=== PATIENT | male | born 1995 | race Caucasian/White ===

== ENCOUNTER 2020-07-08 09:04 | Emergency (ER) | payer BC, SELFPAY ==
[2020-07-08 09:21] VITALS: BP 149/96; PULSE 86; RESP 18; TEMP 36.9; O2SAT 98; BMI 64.7
--- NOTE | 2020-07-08 09:35 | HMH.EDUTC ---
[facility] [place] Disposition Clinical Impression: Right otitis media Qualifiers: Otitis media type: suppurative Chronicity: acute Recurrence: non-recurrent Spontaneous tympanic membrane rupture: without spontaneous rupture Qualified Code(s): H66.001 - Acute suppurative otitis media without spontaneous rupture of ear drum, right ear Sinusitis Qualifiers: Sinusitis location: maxillary Chronicity: acute Recurrence: non-recurrent Qualified Code(s): J01.00 - Acute maxillary sinusitis, unspecified Disposition: Home, Self-Care Condition on Discharge: Good Instructions: DI for Sinusitis Prescriptions: Amoxicillin [Amoxicillin 875MG Tab] 875 mg PO Q12H #20 tab Transmission Status: Pending to [id number] predniSONE [Prednisone 20mg Tab] 20 mg PO BID 5 Days #10 tab Transmission Status: Pending to [id number] Referrals: PCP,No [Primary Care Provider] - Forms: Work/School Release Time of Disposition: 09:42 Medical Decision Making - Mukund Inquiry Pt receiving controlled substance: No Vital Signs: 07/08/20 09:21 Temperature 98.4 F Temperature Source Oral Pulse Rate [Right Brachial] 86 Respiratory Rate 18 Blood Pressure [Right Arm] 149/96 H Blood Pressure Mean [Right Arm] 113 Blood Pressure Source [Right Arm] Automatic Cuff Blood Pressure Position [Right Arm] Sitting 02 Sat by Pulse Oximetry 98 [facility] [place] HPI - General Stated complaint: flu test Time Seen by Provider: 07/08/20 09:35 Mode of Arrival: Ambulatory Source of Information: Patient Limitations: No Limitations Description of Symptoms (Recalled from Triage Doc. by RN): Flu test HEENT Symptoms (Recalled from RN notes): No Resp Symptoms (Recalled from RN notes): Yes Skin Symptoms (Recalled from RN notes): No MS Symptoms (Recalled from RN notes): No Functional Status (Recalled from RN notes): wnl - History of Present Illness Provider Complaint: Patient has had right ear pain, sinus pain, congestion, sore throat, productive cough X 7-8 days. Works at [employer] and has been tested for COVID19 twice and has been negative. Onset (ago): day(s) (8) Relieving factors: none Exacerbating factors: none Associated symptoms: cough Treatments prior to arrival: none - Related Data Previous Rx's Medication Instructions Recorded Amoxicillin [Amoxicillin 875MG 875 mg PO Q12H #20 tab 07/08/20 Tab] predniSONE [Prednisone 20mg 20 mg PO BID 5 Days #10 tab 07/08/20 Tab] Allergies Allergy/AdvReac Type Severity Reaction Status Date / Time No Known Allergies Allergy Verified 07/08/20 09:32 - Worker's Comp Is this a Worker's Comp case?: No H History - Hepatitis A Screen Drug use history?: No High risk sexual behaviors?: No History of sexually transmitted infection?: No Currently employed?: No Childcare worker?: No Do you have indoor plumbing?: Yes Do you have electricity?: Yes Attestation statement:: This patient has been screened for Hepatitis A risk factors. I have reviewed the patient's past medical history: Yes - Social History Smoking Status: Current every day smoker # Packs/Day (cigarettes): 1 Alcohol Intake: never Occupational Status: employed ROS Obtained: Yes All systems reviewed & no additional complaints - Constitutional Constitutional: Denies fever(s), Reports headache(s) - ENT Ears, Nose, Mouth, and Throat: Reports nasal congestion, Reports sinus pain, Reports sore throat - Respiratory Respiratory: Reports cough Physical Exam - General General appearance: alert, in no apparent distress - Head Head exam: normocephalic - Eye Eye exam: Present: PERRL - ENT ENT exam: Present: normal oropharynx - Expanded ENT Exam TM/Canal exam: Right TM: erythema, bulging Nose exam: Present: sinus tenderness - Respiratory Respiratory exam: Present: normal lung sounds bilaterally - Cardiovascular Cardiovascular exam: Present: regular rate, normal rhythm - Neurological Exam Neurological exam:
[2020-07-08 09:36] LABS: UTC Strep Screen (Rapid) Negative (Negative)
[2020-07-08 09:37] LABS: UTC Influenza A Antigen Negative (Negative); UTC Influenza B Antigen Negative (Negative)
[2020-07-08 09:45] VITALS: BP 146/96; PULSE 86; RESP 18; TEMP 36.9; O2SAT 98
== END 2020-07-08 09:46 | disposition home or self-care (01) ==
PROVIDERS: Emergency Provider Physician Assistant
DX: H66.001 Acute suppurative otitis media without spontaneous rupture of ear drum, right ear (principal); J01.00 Acute maxillary sinusitis, unspecified; F17.210 Nicotine dependence, cigarettes, uncomplicated
CPT/HCPCS: 87804; 87880; 99202; G0463

== ENCOUNTER 2020-08-21 19:59 | Emergency (ER) | payer BC, SELFPAY ==
[2020-08-21 20:13] VITALS: RESP 20; TEMP 36.8; O2SAT 96; BMI 62.9
--- NOTE | 2020-08-21 20:13 | HMH.EDUTC ---
[facility] [place] Clinical Impression: Pharyngitis Qualifiers: Pharyngitis/tonsillitis etiology: unspecified etiology Qualified Code(s): J02.9 - Acute pharyngitis, unspecified Disposition: Home, Self-Care Condition on Discharge: Good Instructions: Sore Throat, DI for Pharyngitis/Tonsillopharyngitis -- Adult Additional Instructions: Drink plenty of fluids. Take tylenol or ibuprofen for pain or fever. Take the medications as directed. Follow up with your regular doctor. GO TO THE ER FOR ANY WORSENING SYMPTOMS Don't start the oral steroids until tomorrow, since you had the shot here today. Prescriptions: Brompheniramine/Pseudoephed/Dm [Bromfed Dm Cough Syrup] 5 ml PO Q6HP PRN #240 syrup PRN Reason: Cough Transmission Status: Received by [id number] Amoxicillin/Potassium Clav [Augmentin 875-125 Tablet] 1 tab PO Q12H 10 Days #20 tab Transmission Status: Received by [facility] predniSONE [Prednisone 20mg Tab] 20 mg PO BID 4 Days #8 tab Transmission Status: Received by [facility] Referrals: Tristan Nelson [Primary Care Provider] - Forms: Work/School Release Time of Disposition: 20:56 Medical Decision Making - Medical Records Medical records reviewed: No: I reviewed the patient's medical records. - Mukund Inquiry Pt receiving controlled substance: No Vital Signs: 08/21/20 20:13 08/21/20 21:12 Temperature 98.3 F 98.3 F Temperature Source Oral Oral Pulse Rate 106 H Respiratory Rate 20 20 Blood Pressure 154/98 H 02 Sat by Pulse Oximetry 96 Oxygen Delivery Method Room Air Room Air - Lab Data Lab results reviewed: Yes: I reviewed the patient's lab results. Orders (Tests/Meds): ED MEDICATIONS Discontinued Medications Generic Name Dose Route Start Last Admin Trade Name Freq PRN Reason Stop Dose Admin Ceftriaxone Sodium 1 gm 08/21/20 20:31 08/21/20 20:40 Ceftriaxone 1gm Vial IM 08/21/20 20:32 1 gm ONCE ONE Administration Protocol Lidocaine HCl 0 ml 08/21/20 20:31 08/21/20 20:40 Lidocaine 1% 5ml Pf Vial IM 08/21/20 20:32 5 ml ONCE ONE Administration Methylprednisolone Sodium Succinate 125 mg 08/21/20 20:31 08/21/20 20:41 Methylprednisolone Sod Succ 125mg Vial IM 08/21/20 20:32 125 mg ONCE ONE Administration [facility] [place] - General Stated complaint: sore throat Time Seen by Provider: 08/21/20 20:13 - History of Present Illness Provider Complaint: He c/o sore throat for the past 3 days. He has had a dry cough and he has felt bad also. He has 3 negative covid test last week at his work for upper respiratory infection symptoms then. - Related Data Previous Rx's Medication Instructions Recorded Amoxicillin [Amoxicillin 875MG 875 mg PO Q12H #20 tab 07/08/20 Tab] predniSONE [Prednisone 20mg 20 mg PO BID 5 Days #10 tab 07/08/20 Tab] Amoxicillin/Potassium Clav 1 tab PO Q12H 10 Days #20 tab 08/21/20 [Augmentin 875-125 Tablet] Brompheniramine/Pseudoephed/Dm 5 ml PO Q6HP PRN #240 syrup 08/21/20 [Bromfed Dm Cough Syrup] predniSONE [Prednisone 20mg 20 mg PO BID 4 Days #8 tab 08/21/20 Tab] Allergies Allergy/AdvReac Type Severity Reaction Status Date / Time No Known Allergies Allergy Verified 07/08/20 09:32 [facility] History - Hepatitis A Screen Attestation statement:: This patient has been screened for Hepatitis A risk factors. I have reviewed the patient's past medical history: Yes - Social History Smoking Status: Current every day smoker # Packs/Day (cigarettes): 1 Alcohol Intake: never Occupational Status: employed ROS Obtained: Yes All systems reviewed & no additional complaints - Constitutional Constitutional: Reports chills, Denies fever(s), Reports poor appetite, Reports malaise - Eyes Eyes: Denies eye discharge - ENT Ears, Nose, Mouth, and Throat: Reports as per HPI - Cardiovascular Cardiovascular: Denies chest pain - Respiratory Respiratory:
[2020-08-21 21:12] VITALS: BP 154/98; PULSE 106; RESP 20; TEMP 36.8; O2SAT 96
[2020-08-23 10:03] LABS: UTC Strep Screen (Rapid) Negative (Negative)
== END 2020-08-21 21:14 | disposition home or self-care (01) ==
PROVIDERS: Emergency Provider Nurse Practitioner Family; PCP Podiatrist Foot & Ankle Surgery
DX: J02.9 Acute pharyngitis, unspecified (principal); F17.210 Nicotine dependence, cigarettes, uncomplicated
CPT/HCPCS: 87880; 96372; 99202; G0463